=== PATIENT | female | born 1990 | race Caucasian/White ===

== ENCOUNTER 2023-07-16 09:39 | Outpatient (CLI) | payer BC, SELFPAY | END 2023-07-16 09:40 | disposition home or self-care (01) | LOC: NFLDREF 09:40 | PROVIDERS: Visit Provider Obstetrics & Gynecology | DX: Z01.419 Encounter for gynecological examination (general) (routine) without abnormal findings (principal); N89.8 Other specified noninflammatory disorders of vagina; Z13.6 Encounter for screening for cardiovascular disorders | CPT/HCPCS: 80061 ==